=== PATIENT | female | born 2000 | race Two or more races ===

== ENCOUNTER 2023-05-18 15:02 | Emergency (ER) | payer MEDICAID, OTHER ==
[~2023-05-18] VITALS: Ht 152.4 cm; Wt 45.9 kg
[2023-05-18 17:20] VITALS: BP 127/76; PULSE 80; RESP 16; TEMP 98.2; O2SAT 99
== END 2023-05-18 17:48 | disposition home or self-care (01) ==
LOC: ER 15:02
DX: R09.A2 Foreign body sensation, throat (principal)
CPT/HCPCS: 70360